=== PATIENT | female | born 2000 | race Two or more races ===

== ENCOUNTER 2021-01-22 14:39 | Emergency (ER) | payer OTHER ==
[~2021-01-22] VITALS: Ht 170.2 cm; Wt 77.0 kg
--- NOTE | 2021-01-22 15:50 | NUR ---
racker octave board completed at time of d/c. PA swabbed pt earlier and workman's comp paperwork completed.
[2021-01-22 16:01] VITALS: BP 115/68
== END 2021-01-22 16:02 | disposition home or self-care (01) ==
LOC: ED 15:00
DX: Z20.822 Contact with and (suspected) exposure to COVID-19 (principal); F17.210 Nicotine dependence, cigarettes, uncomplicated
CPT/HCPCS: 99283; 99406; U0003; U0005